=== PATIENT | female | born 2000 | race Caucasian/White ===

== ENCOUNTER 2021-12-07 00:38 | Emergency (ER) | payer SELFPAY ==
[~2021-12-07] VITALS: Ht 162.6 cm; Wt 52.3 kg
[2021-12-07 00:43] VITALS: BP 143/99
== END 2021-12-07 01:59 ==
LOC: ER 00:39
DX: S91.011A Laceration without foreign body, right ankle, initial encounter (principal); Z02.89 Encounter for other administrative examinations; V49.9XXA Car occupant (driver) (passenger) injured in unspecified traffic accident, initial encounter; Y93.89 Activity, other specified; Y92.89 Other specified places as the place of occurrence of the external cause; Y99.8 Other external cause status
CPT/HCPCS: 12001; 99283